=== PATIENT | male | born 1970 | race African-American/Black ===

== ENCOUNTER 2017-04-10 21:56 | Emergency (ER) | payer OTHER ==
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
[~2017-04-10 21:56] MED LIST: KEFLEX PO; KEFLEX500 MG PO; ULTRAM PO; VICODIN 5/1 TAB 5/50 PO; VOLTAREN50 MG PO
== END 2017-04-11 01:54 | disposition home or self-care (01) ==
LOC: CED 21:56 → CFTX 21:56
DX: S09.90XA Unspecified injury of head, initial encounter (principal); S91.111A Laceration without foreign body of right great toe without damage to nail, initial encounter; S13.4XXA Sprain of ligaments of cervical spine, initial encounter; S93.601A Unspecified sprain of right foot, initial encounter; F17.210 Nicotine dependence, cigarettes, uncomplicated; S00.83XA Contusion of other part of head, initial encounter; Y04.0XXA Assault by unarmed brawl or fight, initial encounter; Y92.410 Unspecified street and highway as the place of occurrence of the external cause
CPT/HCPCS: 12001; 70450; 72125; 73630; 99284

== ENCOUNTER 2017-04-13 14:00 | Inpatient (IN) | payer OTHER ==
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
--- NOTE | ~2017-04-13 | DS ---
Unit #: [id number] #: [id number] Patient: RODRI COLON JR [id number] [place] [address] [id number] I MR#: [id number] NAME: RODRI COLON JR ROOM: P185 Age: 46 Sex: M Admission Date: 04/13/2017 : 1970 Discharge Date: 04/15/2017 Attending Physician: Clem Villanueva M.D. Primary Care Physician: Primary Care Physician No DISCHARGE SUMMARY REASON FOR ADMISSION The patient is a 46-year-old male, admitted secondary to a history of increasing abuse of cocaine and alcohol. HOSPITAL COURSE The patient was admitted to the [facility] unit and placed on suicide precautions. A trial of Lexapro 10 mg daily was initiated. The patient complains of depressed mood and he was continued on prescribed Keflex and Naprosyn. The patient participated actively within the therapeutic milieu and requested discharge. When seen by this physician on 04/15/2017, he requested discharge on that date and it was so ordered. FINAL DIAGNOSES Cocaine use disorder; alcohol use disorder; dysthymic disorder; history of foot injury. DISPOSITION ON DISCHARGE The patient is discharged on the following medications: Lexapro 10 mg daily for depression, Naprosyn 500 mg b.i.d. for pain, Keflex 500 mg t.i.d. for infection. DISCHARGE INSTRUCTIONS No dietary or physical restrictions were placed upon the patient at the time of discharge. FOLLOWUP Followup will take place through the auspices of community mental health resources. PROGNOSIS The patient's prognosis is considered fair. Dictated by... Clem Villanueva M.D. CB/monica TD: 04/16/2017 02:18 JOB #: [id number] Unit #: [id number] #: [id number] Patient: RODRI COLON JR DISCHARGE SUMMARY Page 1 of 1 X Clem Villanueva MD DISCHARGE SUMMARY
--- NOTE | ~2017-04-13 | HP ---
Unit #: [id number] #: [id number] Patient: VALENTÍN COLON JR [id number] [place] [address] [id number] MR#: [id number] NAME: VALENTÍN COLON JR ROOM: P185 Age: 46 Sex: M Admission Date: 04/13/2017 : 1970 Attending Physician: Clem Villanueva M.D. Admitting Physician: Clem Villanueva M.D. Primary Care Physician: Primary Care Physician No HISTORY AND PHYSICAL HISTORY OF PRESENT ILLNESS Valentín is a 46 year old, admitted to [facility], because of his polysubstance abuse, which includes cocaine and alcohol. PAST MEDICAL HISTORY 1. Long history of polysubstance abuse. 2. History of alcohol abuse. PAST SURGICAL HISTORY Fractured jaw with open reduction and internal fixation. ALLERGIES No known drug allergies. SOCIAL HISTORY Smokes cigars on a daily basis, drinks at least a pint of liquor on a daily basis, admits to using marijuana, and uses cocaine regularly. FAMILY HISTORY Medically noncontributory. REVIEW OF SYSTEMS CONSTITUTIONAL: No fever or chills. HEENT: Denies any sore throat, ear pain or runny nose. CARDIOVASCULAR: Denies chest pain, irregular heart rhythm or palpitations. CHEST: Denies shortness of breath or cough. No hemoptysis. GASTROINTESTINAL: Denies nausea, vomiting, diarrhea or chronic constipation. ENDOCRINE: Denies history of increased thirst or urination. No recent significant weight loss or gain. GENITOURINARY: Denies dysuria, frequency, or hematuria. SKIN: Denies any rashes. HEMATOLOGIC: Denies history of increased bleeding or bruising. MUSCULOSKELETAL: Denies any hot, swollen joints. No generalized muscle pain. NEUROLOGIC: Denies problems with vision or speech. No frequent, severe headaches. No numbness, tingling or weakness in any extremities. Denies loss of bladder or bowel control. CURRENT MEDICATIONS 1. Detox protocol 2. Naproxen 500 mg b.i.d. 3. Keflex 500 mg t.i.d. Unit #: [id number] #: [id number] Patient: VALENTÍN COLON JR PHYSICAL EXAMINATION GENERAL: Alert, well-nourished, no apparent distress. VITAL SIGNS: Blood pressure 138/68, heart rate 77, respirations 16, and temperature 98.6. WEIGHT: 215 pounds. HEIGHT: 5 feet 8 inches. SKIN: Warm and dry without rash. He has a laceration along the underside of his right great toe. Three stitches are in place. There is good skin approximation without redness, swelling, heat, or pus. There is minimal swelling across the top of the foot and he is in a hard walking sandal. HEENT: Normocephalic. TMs not viewed. Oral and nasal passages clear. Conjunctivae clear. PERRLA. EOMs intact. NECK: Supple without lymphadenopathy or thyromegaly. HEART: Regular rate and rhythm without murmur. LUNGS: Clear. ABDOMEN: Soft, nontender. : Not done. EXTREMITIES: No evidence of cyanosis, clubbing or edema. Moves all without focal deficit. NEUROLOGICAL: Grossly within normal limits. Cranial Nerves: II: Visual rivero are intact. III, IV AND : Extraocular movements are intact. Pupils are equal, round and reactive to light. V: Facial sensation is grossly normal. VII: Facial movements and expression are normal. VIII: Auditory acuity grossly intact. IX, X: Uvula is midline. Phonation is normal. XI: Patient shrugs shoulders and turns head normally. XII: Tongue protrudes in the midline. Sensory and Motor Function: Sensory and motor sensation is grossly normal. Motor: moves all extremities well. Coordination: Gait is normal. Deep Tendon Reflexes: Intact. IMPRESSION 1. Psychiatric admission. 2. Laceration to his right great toe sustained prior to admission. He has three stitches. RECOMMENDATIONS Psychiatric, per psychiatrist. MEDICAL 1. I see no contraindications to participating in facility's activities. 2. Keep the area clean with soap and water. Finish Keflex. Suture removal in seven days. MEDICAL PROGNOSIS Good. MEDICAL CONDITION Stable. Dictated by... Sylvia Royal P.A.-C. for Travon Motley/jonathan Unit #: [id number] #: [id number] Patient: VALENTÍN COLON JR TD: 04/14/2017 05:33 JOB #: [id number] HISTORY AND PHYSICAL Page 1 of 1 X Sylvia Royal HISTORY AND PHYSICAL
[2017-04-14 09:44] LABS: BASOPHIL# 0.1 X10e3 (0-0.3); BASOPHIL% 0.6 % (0-2.5); EOSINOPHIL# 0.2 X10e3 (0-0.7); EOSINOPHIL% 2.1 % (0.0-7.0); HEMATOCRIT 39.5 % (38.0-50.0); LYMPHOCYTE# 3.3 X10e3 (1.0-3.5); LYMPHOCYTE% 38.3 % (17.0-45.0); MEAN CELL VOLUME 87.2 FL (83-96); MEAN CORPUSCULAR HEMOGLOBIN 28.7 PG (28-34); MEAN CORPUSCULAR HGB CONC 32.9 g/dL (30-36); MEAN PLATELET VOLUME 8.5 FL (6.5-11.5); MONOCYTE# 0.8 X10e3 (0-1.0); NEUTROPHIL# 4.3 X10e3 (1.5-7.1); PLATELET COUNT 286 X10e3 (140-420); RED BLOOD COUNT 4.53 X10e (3.90-5.60); RED CELL DISTRIBUTION WIDTH 14.1 % (11.0-15.5); WHITE BLOOD COUNT 8.6 X10e3 (4.0-10.5)
[2017-04-14 09:55] LABS: ALBUMIN SERUM 3.4 g/dL (3.5-5.0); BILIRUBIN,TOTAL 0.6 mg/dL (0.2-2.0); BUN/CREATININE RATIO 7.27; CALCIUM SERUM 8.9 mg/dL (8.4-10.2); CREATININE SERUM 1.1 mg/dL (0.6-1.4); GLOM FILT RATE Estimated 93.5 mL/min (>60); POTASSIUM 4.2 mmol/L (3.5-5.1); PROTEIN TOTAL SERUM 6.2 g/dL (6.0-8.3)
[2017-04-14 09:58] LABS: DIFF IND NO
[2017-04-15 12:27] LABS: URINE APPEARANCE CLEAR; URINE BILIRUBIN NEG (NEG); URINE BLOOD NEG (NEG); URINE COLOR DK YELLOW; URINE GLUCOSE NEG (NEG); URINE KETONE NEG (NEG); URINE LEUKOCYTE ESTERASE NEG (NEG); URINE NITRATE NEG (NEG); URINE PH 6.5 (5-8); URINE PROTEIN NEG (NEG); URINE SPECIFIC GRAVITY 1.017 (1.003-1.035)
[2017-04-15 12:42] LABS: AMPHETAMINE NEG (NEG); BARBITURATES NEG (NEG); BENZODIAZEPINES POS (NEG); COCAINE NEG (NEG); MARIJUANA POS (NEG); OPIATES NEG (NEG); TRICYCLIC ANTIDEPRESSANTS NEG (NEG); U METHADONE NEG (NEG)
== END 2017-04-15 15:16 | DRG 897 ==
LOC: P1E 15:54
PROVIDERS: Specialist
PROC: HZ2ZZZZ Detoxification Services for Substance Abuse Treatment (ICD-10-PCS; principal; 2017-04-13)
DX: F14.10 Cocaine abuse, uncomplicated (principal); F10.10 Alcohol abuse, uncomplicated; F34.1 Dysthymic disorder; F12.10 Cannabis abuse, uncomplicated; F17.290 Nicotine dependence, other tobacco product, uncomplicated; S91.111D Laceration without foreign body of right great toe without damage to nail, subsequent encounter; X58.XXXD Exposure to other specified factors, subsequent encounter
CPT/HCPCS: 80053; 80307; 81003; 85025; 86592